=== PATIENT | female | born 1985 | race Caucasian/White ===

== ENCOUNTER 2016-04-18 17:42 | Emergency (ER) | payer OTHER ==
[~2016-04-18] VITALS: Ht 162.6 cm; Wt 53.0 kg
[2016-04-18 17:50] VITALS: BP 132/85; PULSE 96; RESP 16; TEMP 98.1; O2SAT 100
[2016-04-18 18:31] VITALS: BP 116/73; PULSE 71; RESP 18; O2SAT 99
--- NOTE | 2016-04-18 18:55 | PD ---
HPI Chief Complaint: Anxiety Time Seen by Provider: 18:03 Travel History International Travel<30 days: No Contact w/Intl Traveler<30days: No Traveled to known affect area: No History of Present Illness HPI This is a 30-year-old female who presents to the emergency department having woken up from sleep this afternoon when she had an episode of palpitations, shortness of breath and anxiety associated with tingling in her face and hands, feeling like the blood flow was coming out of her head and out of her hands. She says this is happened to her multiple times in the past. She said it happened to her twice last year and then 4 times this year. She says it increasing in frequency. She says she had an episode last year for she had a headache for 21 days and an MRI which demonstrated some poor blood flow to the back of her brain. She is not really sure what this was about but they told her that it causes her anxiety. She doesn't have a primary care physician currently. She denies any chest pain. [facility] Past Medical History Anxiety: Yes Diminished Hearing: No Immunizations Current: No Migraines: Yes Tetanus Vaccination: Unknown Influenza Vaccination: No ?: Not LMP: 1 week ago Past Surgical History Surgical History: No Previous Surgery Social History Alcohol Use: No Tobacco Use: No Substance Use: No Allergies-Medications (Allergen,Severity, Reaction): Coded Allergies: Motrin (Verified Adverse Reaction, Unknown, STOMACHE PAIN, 04/18/16) Reported Meds & Prescriptions Reported Meds & Active Scripts Active No Active Prescriptions or Reported Medications Review of Systems Except as stated in HPI: all other systems reviewed are Neg Physical Exam Narrative GENERAL:Well appearing, no acute distress SKIN: Warm and dry. HEAD: Atraumatic. Normocephalic. EYES: Pupils equal and round. No injection or drainage. ENT: Moist mucous membranes NECK: Trachea midline. No thyromegaly. CARDIOVASCULAR: Regular rate and rhythm. No murmur appreciated. RESPIRATORY: Clear to auscultation. Breath sounds equal bilaterally. GASTROINTESTINAL: Abdomen soft, non-tender, nondistended. MUSCULOSKELETAL: No obvious deformities. NEUROLOGICAL: Awake and alert. No obvious cranial nerve deficits. Moving all extremities. PSYCHIATRIC: Pressured speech, hypomanic, no thoughts of hurting self or others. Data Data Last Documented VS Vital Signs Date Time Temp Pulse Resp B/P Pulse Ox O2 Delivery O2 Flow Rate FiO2 1/21/17 18:31 71 18 116/73 99 Room Air 04/18/16 17:50 98.1 Orders Complete Blood Count With Diff (04/18/16 18:23) Comprehensive Metabolic Panel (04/18/16 18:23) Thyroid Stimulating Hormone (04/18/16 18:23) Electrocardiogram (04/18/16 ) MDM Medical Decision Making Medical Screen Exam Complete: Yes Emergency Medical Condition: Yes Interpretation(s) Afebrile, mild tachycardia, normotensive Differential Diagnosis Panic attack, rey, bipolar disorder, arrhythmia, hyperthyroidism Narrative Course This is a 30-year-old female who presents to the emergency department with concerns for a discrete episode of palpitations, and facial and hand tingling that preceded her arrival. She was tearful on arrival and hyperventilating. Her presentation is consistent with a panic attack. I explained to her that I would like to rule out organic etiologies of her symptoms with some labs and an EKG. She is refusing the labs and EKG because she is concerned about cost. The patient does have pressured speech when I talk to her, and she is very tangential, speaking about her headache workup, how she is worried about her blood vessels, and how she is having a lot of financial and personal life stressors at home. I think the patient probably does have some underlying psychiatric disease however I think she is competent to make her own decisions. I don't think she is a harm to herself or others and I don't think I can hold her against her will or do laboratory testing against her well. Patient will make a decision regarding laboratory testing and disposition will be made pending this. Scripts No Active Prescriptions or Reported Meds Vivienne Schaeffer MD Apr 18, 2016 18:55
[2016-04-18 19:07] VITALS: BP 104/77; PULSE 87; RESP 18; O2SAT 100
[2016-04-18 19:42] LABS: BASOPHIL # 0.1 TH/MM3 (0-0.2); BASOPHIL % 1.1 % (0.0-2.0); EOSINOPHIL # 0.1 TH/MM3 (0-0.4); EOSINOPHIL % 1.4 % (0.0-4.0); HEMATOCRIT 39.9 % (35.0-46.0); HEMO FLAGS DIFF FINAL; LYMPH % 27.5 % (9.0-44.0); LYMPHOCYTE # 1.3 TH/MM3 (1.0-4.8); MEAN CELL VOLUME 86.1 FL (80.0-100.0); MEAN CORPUSCULAR HEMOGLOBIN 28.9 PG (27.0-34.0); MEAN CORPUSCULAR HGB CONC 33.5 % (32.0-36.0); MONO % 6.9 % (0.0-8.0); NEUT % 63.1 % (16.0-70.0); PLATELET COUNT 264 TH/MM3 (150-450); RED BLOOD COUNT 4.64 MIL/MM3 (4.00-5.30); RED CELL DISTRIBUTION WIDTH 13.9 % (11.6-17.2); WHITE BLOOD COUNT 4.8 TH/MM3 (4.0-11.0)
[2016-04-18 19:55] LABS: CHLORIDE 108 MEQ/L (98-107); POTASSIUM 3.4 MEQ/L (3.5-5.1); SODIUM (NA) 141 MEQ/L (136-145)
[2016-04-18 19:59] LABS: ANION GAP 8 MEQ/L (5-15); BICARBONATE 25.4 MEQ/L (21.0-32.0); BLOOD UREA NITROGEN 13 MG/DL (7-18)
[2016-04-18 20:02] LABS: ALT (GPT) 21 U/L (10-53); AST (GOT) 15 U/L (15-37); GLOMERULAR FILTRATION RATE 83 ML/MIN (>89)
[2016-04-18 20:04] LABS: TOTAL BILIRUBIN ADULT 0.1 MG/DL (0.2-1.0)
[2016-04-18 20:05] LABS: ALKALINE PHOSPHATASE 85 U/L (45-117)
[2016-04-18 20:13] VITALS: BP 115/82; PULSE 90; RESP 18; O2SAT 100
--- NOTE | 2016-04-18 20:22 | PD ---
Physical Exam Time Seen by Provider: 20:[address] Schaeffer lift this patient for me to check the lab and make a disposition, likely discharge. Data Data Last Documented VS Vital Signs Date Time Temp Pulse Resp B/P Pulse Ox O2 Delivery O2 Flow Rate FiO2 04/18/16 19:07 89 18 04/18/16 19:07 104/77 100 Room Air 04/18/16 17:50 98.1 Orders Complete Blood Count With Diff (04/18/16 18:23) Comprehensive Metabolic Panel (04/18/16 18:23) Thyroid Stimulating Hormone (04/18/16 18:23) Electrocardiogram (04/18/16 ) Labs Laboratory Tests Test 04/18/16 19:25 White Blood Count 4.8 TH/MM3 Red Blood Count 4.64 MIL/MM3 Hemoglobin 13.4 GM/DL Hematocrit 39.9 % Mean Corpuscular Volume 86.1 FL Mean Corpuscular Hemoglobin 28.9 PG Mean Corpuscular Hemoglobin 33.5 % Concent Red Cell Distribution Width 13.9 % Platelet Count 264 TH/MM3 Mean Platelet Volume 7.9 FL Neutrophils (%) (Auto) 63.1 % Lymphocytes (%) (Auto) 27.5 % Monocytes (%) (Auto) 6.9 % Eosinophils (%) (Auto) 1.4 % Basophils (%) (Auto) 1.1 % Neutrophils # (Auto) 3.0 TH/MM3 Lymphocytes # (Auto) 1.3 TH/MM3 Monocytes # (Auto) 0.3 TH/MM3 Eosinophils # (Auto) 0.1 TH/MM3 Basophils # (Auto) 0.1 TH/MM3 CBC Comment DIFF FINAL Differential Comment Sodium Level 141 MEQ/L Potassium Level 3.4 MEQ/L Chloride Level 108 MEQ/L Carbon Dioxide Level 25.4 MEQ/L Anion Gap 8 MEQ/L Blood Urea Nitrogen 13 MG/DL Creatinine 0.82 MG/DL Estimat Glomerular Filtration 83 ML/MIN Rate Random Glucose 117 MG/DL Calcium Level 8.4 MG/DL Total Bilirubin 0.1 MG/DL Aspartate Amino Transf 15 U/L (AST/SGOT) Alanine Aminotransferase 21 U/L (ALT/SGPT) Alkaline Phosphatase 85 U/L Total Protein 7.8 GM/DL Albumin 3.9 GM/DL [facility] Medical Record Reviewed: Yes Supervised Visit with JULIAN: Yes Interpretation(s) The CBC is normal. The complete metabolic profile shows potassium at 3.4, GFR of 83 but is otherwise unremarkable. The TSH is normal. Differential Diagnosis Panic attack, schizoaffective disorder, hypoglycemia, electrolyte disorder, hypo -/hyperglycemia, hypo-/hyperthyroid Narrative Course The patient appears to have a panic attack. She had about 4 last year and already this year she states she has had 3 or 4. Plan: The patient should exercise and should follow-up with a psychologist/ psychiatrist. Diagnosis Primary Impression: Panic attack Additional Instruction: As we discussed, exercise does help because it releases chemicals that tend to relax your brain. Also, it is necessary to talk to people such as a independent agent music education, psychologist or psychiatrist about these problems. The more you talk to people about once going on the more this helps. Med/Other Pt SpecificInfo: No Change to Meds Scripts No Active Prescriptions or Reported Meds Disposition: 01 DISCHARGE HOME Condition: Stable Rad Rubio MD Apr 18, 2016 20:22
[2016-04-18] MEDS ORDERED: LORazepam 2 MG TAB PO ONE (20:30)
[2016-04-18] MEDS ORDERED: POTASSIUM CHLORIDE 20 MEQ CONTROLLED RELEASE TAB PO ONE (21:00)
[2016-04-18 21:14] VITALS: BP 114/73; PULSE 81; RESP 18; O2SAT 97
[2016-04-18] MEDS ORDERED: LORA-474 PO (21:37)
== END 2016-04-18 21:49 | disposition home or self-care (01) ==
LOC: PHED 17:42
DX: F41.9 Anxiety disorder, unspecified (principal); F41.0 Panic disorder [episodic paroxysmal anxiety]
CPT/HCPCS: 80053; 84443; 85025